=== PATIENT | male | born 1945 | race Caucasian/White ===

== ENCOUNTER 2016-12-13 23:51 | Emergency (ER) | payer MEDICARE, OTHER ==
[2016-12-14] MEDS ORDERED: Ondansetron 4 MG/2 ML SDV IVPUSH ONE (01:25)
[2016-12-14 02:13] VITALS: BP 139/68
[2016-12-14] MEDS ORDERED: Sodium Chloride 0.9% 1,000 ML IV SCH (02:15)
[2016-12-14] MEDS ORDERED: Levofloxacin/Dextrose 5%-Water 500 MG in Premix Bag 1 BAG IV ONE (02:26)
[2016-12-14] MEDS ORDERED: Acetaminophen 325 MG Tab PO ONE (02:27)
--- NOTE | 2016-12-14 02:36 | EDM.PDOC ---
ED HPI SEPSIS - General Chief Complaint: Fever Stated Complaint: WEAKNESS Time Seen by Provider: 12/14/16 00:45 Source: Reports: Patient, Family History Limitations: Reports: No limitations - History of Present Illness INITIAL COMMENTS - FREE TEXT/NARRATIVE: Pt became very very weak and spiked a temp tonight. He has a history of peritoneal dialysis. 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 This was done at [facility]. He has a history of bladder ca. He also has a history of RA. Timing/Duration: Reports: Hour(s): Severity: moderate Context: Reports: infection Associated symptoms: Reports: fever/chills, loss of appetite, nausea/vomiting - Related Data Allergies/ADRs: Allergies Allergy/AdvReac Type Severity Reaction Status Date / Time adalimumab [From Humira] Allergy Severe Anaphylactic Verified 12/14/16 00:44 Shock infliximab [From Remicade] Allergy Breast Verified 12/14/16 00:44 Tenderness Home Meds: Home Meds Aspirin [Linda Chewable Aspirin] 325 mg PO DAILY 11/05/13 [History] Cranberry Extract [Cranberry] 4,200 mg PO DAILY 11/05/13 [History] Insulin Glargine,Hum.Rec.Anlog [Lantus Solostar] 24 unit SQ BEDTIME 11/05/13 [ History] Insulin Lispro [Humalog] 0 unit SQ ASDIRECTED PRN 11/05/13 [History] Metoprolol Tartrate [Lopressor] 25 mg PO BID 09/09/14 [History] predniSONE 7 mg PO BID 01/09/15 [History] Vitamin A 8,000 units PO DAILY 05/23/15 [History] Pantoprazole [Protonix] 40 mg PO DAILY 01/06/16 [History] Sodium Bicarbonate 3 tab PO BID 01/06/16 [History] Vitamin B Complex [B Complex] 1 tab PO DAILY 01/06/16 [History] Cholecalciferol (Vitamin D3) [Vitamin D3] 2,000 unit PO DAILY 07/18/16 [History] Isosorbide Mononitrate [Imdur] 60 mg PO DAILY 07/18/16 [History] Torsemide 100 mg PO DAILY 07/18/16 [History] ALPRAZolam [Xanax] 0.25 mg PO TID PRN 12/14/16 [History] Clopidogrel Bisulfate [Plavix] 75 mg PO DAILY 12/14/16 [History] Docusate Sodium [Colace] 100 mg PO DAILY 12/14/16 [History] Epoetin Jimmy [Epogen] 20,000 unit IJ ONETIME 12/14/16 [History] Gentamicin [Gentamicin 0.1%] 15 gm TOP DAILY 12/14/16 [History] Magnesium Oxide 400 mg PO DAILY 12/14/16 [History] Mupirocin Oint [Bactroban Oint] 1 applic TOP TID 12/14/16 [History] Nitroglycerin [Nitrostat] 0.4 mg SL Q5M PRN 12/14/16 [History] Past Medical History HEENT History: Reports: Epistaxis, Impaired vision Cardiovascular History: Reports: CAD, High cholesterol, Hypertension, [place] Respiratory History: Reports: COPD, Other (see below) Other Respiratory History: spot on right lung Gastrointestinal History: Reports: Cholelithiasis, GERD Genitourinary History: Reports: Renal disease, Urinary incontinence, UTI, recurrent Other Genitourinary History: bladder cancer Musculoskeletal History: Reports: RA Other Musculoskeletal History: rheumatoid vasculitis Psychiatric History: Reports: Anxiety Endocrine/Metabolic History: Reports: Diabetes, type II Hematologic History: Reports: None, Blood transfusion(s) Immunologic History: Reports: Immunosuppression Oncologic (Cancer) History: Reports: Bladder, Lung Other Oncologic History: spot on right lung - Infectious Disease History Infectious Disease History: Reports: Chicken pox, Measles, Mumps - Past Surgical History Cardiovascular Surgical History: Reports: Coronary artery stent Respiratory Surgical History: Reports: Lung Biopsies, Lung Resection GI Surgical History: Reports: Appendectomy, Cholecystectomy, Colonoscopy Other GI Surgeries/Procedures: Peritoneal dialysis catheter Male Surgical History: Reports: Ureteral stent Musculoskeletal Surgical History: Reports: Arthroscopic knee, Other (see below) Other Musculoskeletal Surgeries/Procedures:: hand and feet surgeries Social & Family History - Family History Family Medical History: Noncontributory Cardiac: Reports: CAD, Hypertension Endocrine/Metabolic: Reports: Diabetes, type II Hematologic: Reports: None Immunologic: Reports: None Oncologic: Reports: Bladder, Esophageal Other Oncologic Family History: Gastric - Tobacco Use Smoking Status *Q: Former Smoker Years of Tobacco use: 30 Packs/Tins Daily: 1 Used Tobacco, but Quit: Yes Month Tobacco Last Used: 1984 Second Hand Smoke Exposure: No - Caffeine Use Caffeine Use: Reports: Coffee Other Caffeine Use: 2-3 cups decaf per day 1 cup tea at night 1 soda q day - Alcohol Use Days Per Week of Alcohol Use: 7 Number of Drinks Per Day: 2 Total Drinks Per Week: 14 - Recreational Drug Use Recreational Drug Use: No - Living Situation & Occupation Living situation: Reports: Occupation: retired (Lives with .) ED ROS GENERAL - Review of Systems Review Of Systems: See Below Constitutional: Reports: fever, chills, malaise, diaphoresis HEENT: Reports: No symptoms Respiratory: Reports: No Symptoms Cardiovascular: Reports: Palpitations, Other (pt feels like his heart is rapid. ) Endocrine: Reports: no symptoms GI/Abdominal: Reports: Nausea Musculoskeletal: Reports: no symptoms Skin: Reports: no symptoms Neurological: Reports: No Symptoms ED EXAM, SEPSIS - Physical Exam Exam: See Below Text/Narrative:: pt arrived with chilling nd profound weakness. He has a history of RA, renal insuff, on peritoneal dialysis , ca of the bladder and a recent resection of a malignant mass from his lung. Exam Limited By: No limitations General Appearance: alert, mild distress, other ( very weak. Pt can bearly stand. ) Ears: normal TMs Nose: normal inspection Throat/Mouth: Normal inspection Head: atraumatic Neck: normal inspection Respiratory/Chest: no respiratory distress Cardiovascular: regular rate, rhythm, tachycardia, other ( Pt has a sinus rhythm with frequent ectopics. ) GI/Abdominal: non tender, other (Pt is feeling nauseated.) (Male) Exam: Deferred Rectal (Males) Exam: Deferred Back: normal inspection Extremities: normal inspection Neurological: alert, oriented, normal cognition Psychiatric: anxious Course - Vital Signs Last Recorded V/S: Last Vital Signs Temp 37.5 C 12/14/16 02:13 Pulse 71 12/14/16 00:44 Resp 18 12/14/16 02:13 BP 139/68 12/14/16 02:13 Pulse Ox 96 12/14/16 02:13 - Orders/Labs/Meds Orders: Active Orders 24 hr Category Date Time Status EKG Documentation Completion [RC] ASDIRECTED Care 12/14/16 01:17 Active Chest 1V Frontal [CR] Stat Exams 12/14/16 00:48 Taken CULTURE BLOOD [BC] Urgent Lab 12/14/16 01:05 Received CULTURE BLOOD [BC] Urgent Lab 12/14/16 01:10 Received CULTURE URINE [RM] Stat Lab 12/14/16 02:15 Uncollected Levofloxacin/Dextrose 5%-Water [Levaquin in D5W 500 MG/ Med 12/14/16 02:26 Active 100 ML] 500 mg Premix Bag 1 bag IV ONETIME Sodium Chloride 0.9% [Normal Saline] 1,000 ml Med 12/14/16 02:15 Active IV ASDIRECTED Blood Culture x2 Reflex Set [OM.PC] Urgent Oth 12/14/16 00:48 Ordered EKG 12 Lead [EK] Routine Ther 12/14/16 01:17 Ordered Medication Orders Sodium Chloride (Normal Saline) 1,000 mls @ 150 mls/hr IV ASDIRECTED SANJIV Last Admin: 12/14/16 02:17 Dose: 150 mls/hr Levofloxacin/Dextrose 500 mg/ (Premix) 100 mls @ 100 mls/hr IV ONETIME ONE Stop: 12/14/16 03:25 Labs: Laboratory Tests 12/14/16 12/14/16 12/14/16 Range/Units 00:46 01:05 01:05 WBC 13.3 H (4.5-11.0) K/uL RBC 2.80 L (4.30-5.90) M/uL Hgb 9.3 L (12.0-15.0) g/dL Hct 28.5 L (40.0-54.0) % MCV 102 H (80-98) fL MCH 33 H (27-31) pg MCHC 33 (32-36) % Plt Count 287 (150-400) K/uL Neut % (Auto) 83 H (36-66) % Lymph % (Auto) 7 L (24-44) % [place] % (Auto) 9 H (2-6) % Eos % (Auto) 1 L (2-4) % Baso % (Auto) 0 (0-1) % Sodium 135 L (140-148) mmol/L Potassium 3.1 L (3.6-5.2) mmol/L Chloride 95 L (100-108) mmol/L Carbon Dioxide 31 (21-32) mmol/L Anion Gap 12.1 (5.0-14.0) mmol/L BUN 54 H (7-18) mg/dL Creatinine 5.0 H* (0.8-1.3) mg/dL Est Cr Clr Drug Dosing 13.30 mL/min Estimated GFR (MDRD) 12 L (>60) Glucose 243 H (74-106) mg/dL Lactic Acid 2.3 H (0.4-2.0) mmol/L Calcium 8.0 L (8.5-10.1) mg/dL Total Bilirubin 0.3 (0.2-1.0) mg/dL AST 11 L (15-37) U/L ALT 19 (12-78) U/L Alkaline Phosphatase 93 (46-116) U/L Total Protein 6.7 (6.4-8.2) g/dL Albumin 2.2 L (3.4-5.0) g/dL Globulin 4.5 H (2.3-3.5) g/dL Albumin/Globulin Ratio 0.5 L (1.2-2.2) Urine Color Urine Appearance Urine pH (4.5-8.0) Ur Specific Mar Lin (1.008-1.030) Urine Protein (NEGATIVE) mg/dL Urine Glucose (UA) (NEGATIVE) mg/dL Urine Ketones (NEGATIVE) mg/dL Urine Occult Blood (NEGATIVE) Urine Nitrite (NEGAITVE) Urine Bilirubin (NEGATIVE) Urine Urobilinogen (NORMAL) mg/dL Ur Leukocyte Esterase (NEGATIVE) Urine RBC (0-5) Urine WBC (0-5) Ur Epithelial Cells Amorphous Sediment Urine Bacteria Urine Mucus 12/14/16 Range/Units 01:51 WBC (4.5-11.0) K/uL RBC (4.30-5.90) M/uL Hgb (12.0-15.0) g/dL Hct (40.0-54.0) % MCV (80-98) fL MCH (27-31) pg MCHC (32-36) % Plt Count (150-400) K/uL Neut % (Auto) (36-66) % Lymph % (Auto) (24-44) % [place] % (Auto) (2-6) % Eos % (Auto) (2-4) % Baso % (Auto) (0-1) % Sodium (140-148) mmol/L Potassium (3.6-5.2) mmol/L Chloride (100-108) mmol/L Carbon Dioxide (21-32) mmol/L Anion Gap (5.0-14.0) mmol/L BUN (7-18) mg/dL Creatinine (0.8-1.3) mg/dL Est Cr Clr Drug Dosing mL/min Estimated GFR (MDRD) (>60) Glucose (74-106) mg/dL Lactic Acid (0.4-2.0) mmol/L Calcium (8.5-10.1) mg/dL Total Bilirubin (0.2-1.0) mg/dL AST (15-37) U/L ALT (12-78) U/L Alkaline Phosphatase (46-116) U/L Total Protein (6.4-8.2) g/dL Albumin (3.4-5.0) g/dL Globulin (2.3-3.5) g/dL Albumin/Globulin Ratio (1.2-2.2) Urine Color Yellow Urine Appearance Turbid Urine pH 6.0 (4.5-8.0) Ur Specific Mar Lin 1.010 (1.008-1.030) Urine Protein 500 H (NEGATIVE) mg/dL Urine Glucose (UA) Normal (NEGATIVE) mg/dL Urine Ketones Negative (NEGATIVE) mg/dL Urine Occult Blood Large (NEGATIVE) Urine Nitrite Negative (NEGAITVE) Urine Bilirubin Negative (NEGATIVE) Urine Urobilinogen Normal (NORMAL) mg/dL Ur Leukocyte Esterase Large (NEGATIVE) Urine RBC 5-10 H (0-5) Urine WBC >100 H (0-5) Ur Epithelial Cells Few Amorphous Sediment Not seen Urine Bacteria Many Urine Mucus Not seen Meds: Medications Generic Name Dose Route Start Last Admin Trade Name Freq PRN Reason Stop Dose Admin Sodium Chloride 1,000 mls @ 150 mls/hr 12/14/16 02:15 12/14/16 02:17 Normal Saline IV 150 mls/hr ASDIRECTED SANJIV Administration Levofloxacin/Dextrose 500 mg/ 100 mls @ 100 mls/hr 12/14/16 02:26 Premix IV 12/14/16 03:25 ONETIME ONE Discontinued Medications Generic Name Dose Route Start Last Admin Trade Name Freq PRN Reason Stop Dose Admin Acetaminophen 650 mg 12/14/16 02:27 Tylenol PO 12/14/16 02:28 NOW ONE Ondansetron HCl 4 mg 12/14/16 01:25 12/14/16 02:13 Zofran IVPUSH 12/14/16 01:26 4 mg ONETIME ONE Administration - Re-Assessments/Exams Free Text/Narrative Re-Assessment/Exam: 12/14/16 02:48 pt was cultureed blood and urine. His urine does look infected. He has a elevated wbc. he has shaking chills. Departure - Departure Time of Disposition: 02:49 Disposition: DC/Tfer to Acute Hospital 02 Condition: fair Clinical Impression: Sepsis, UTI (urinary tract infection), Renal failure, Anemia Rheumatoid arthritis Qualifiers: Rheumatoid factor presence: unspecified presence Laterality: unspecified laterality Forms: ED Department Discharge Care Plan Goals: transfer to [facility]. - My Orders Last 24 Hours: My Active Orders 12/14/16 00:48 Chest 1V Frontal [CR] Stat Blood Culture x2 Reflex Set [OM.PC] Urgent 12/14/16 01:05 CULTURE BLOOD [BC] Urgent 12/14/16 01:10 CULTURE BLOOD [BC] Urgent 12/14/16 01:17 EKG Documentation Completion [RC] ASDIRECTED EKG 12 Lead [EK] Routine 12/14/16 02:15 CULTURE URINE [RM] Stat Sodium Chloride 0.9% [Normal Saline] 1,000 ml IV ASDIRECTED 12/14/16 02:26 Levofloxacin/Dextrose 5%-Water [Levaquin in D5W 500 MG/100 ML] 500 mg Premix Bag 1 bag IV ONETIME - Assessment/Plan Last 24 Hours: My Active Orders 12/14/16 00:48 Chest 1V Frontal [CR] Stat Blood Culture x2 Reflex Set [OM.PC] Urgent 12/14/16 01:05 CULTURE BLOOD [BC] Urgent 12/14/16 01:10 CULTURE BLOOD [BC] Urgent 12/14/16 01:17 EKG Documentation Completion [RC] ASDIRECTED EKG 12 Lead [EK] Routine 12/14/16 02:15 CULTURE URINE [RM] Stat Sodium Chloride 0.9% [Normal Saline] 1,000 ml IV ASDIRECTED 12/14/16 02:26 Levofloxacin/Dextrose 5%-Water [Levaquin in D5W 500 MG/100 ML] 500 mg Premix Bag 1 bag IV ONETIME
--- NOTE | 2016-12-14 08:57 | CR ---
Portable chest Comparison: 17 September 2016. There are postsurgical changes in the peripheral right midlung where there is a suture line. The rig ht lung nodule is no longer visualized. The heart and vascular structures are within normal limits. There are no infiltrates or effusions. Impression: 1. No acute findings.
== END 2016-12-14 03:30 ==
LOC: JP.ED 23:51
DX: A41.9 Sepsis, unspecified organism (principal); N39.0 Urinary tract infection, site not specified; N19 Unspecified kidney failure; D64.9 Anemia, unspecified; M06.9 Rheumatoid arthritis, unspecified; I25.10 Atherosclerotic heart disease of native coronary artery without angina pectoris; E78.00 Pure hypercholesterolemia, unspecified; I10 Essential (primary) hypertension; I25.2 Old myocardial infarction; J44.9 Chronic obstructive pulmonary disease, unspecified; K21.9 Gastro-esophageal reflux disease without esophagitis; F41.9 Anxiety disorder, unspecified; E11.9 Type 2 diabetes mellitus without complications; Z88.8 Allergy status to other drugs, medicaments and biological substances; Z79.82 Long term (current) use of aspirin; Z79.4 Long term (current) use of insulin; Z79.899 Other long term (current) drug therapy; Z90.49 Acquired absence of other specified parts of digestive tract; Z87.891 Personal history of nicotine dependence; Z99.2 Dependence on renal dialysis
CPT/HCPCS: 36415; 71010; 80053; 81001; 83605; 85025; 87040; 87086; 87088; 87186; 93005; 96361; 96365; 96375; 99285; A9270; J1956; J2405; J7040; 93010; 99284

== ENCOUNTER 2017-01-07 13:05 | Emergency (ER) | payer MEDICARE, OTHER ==
[2017-01-07 13:33] VITALS: BP 122/69
--- NOTE | 2017-01-07 13:58 | EDM.PDOC ---
ED HPI GENERAL MEDICAL PROBLEM - General Chief Complaint: Gastrointestinal Problem Stated Complaint: BLACK STOOLS Time Seen by Provider: 01/07/17 13:53 Source of Information: Reports: Patient, Family History Limitations: Reports: No Limitations - History of Present Illness INITIAL COMMENTS - FREE TEXT/NARRATIVE: Pt arrived with a history of black tarry stols. He had 2 stools today and that i typical. He has upper abdomanal pain. He was scoped when he was in [place] and nothing definite was seen. . He started bleeding on thur and it has bee persistent. Onset: Gradual Duration: Day(s): Location: Reports: Abdomen, Other (bleeding per rectum is dark blood. ) Severity: Moderate Associated Symptoms: Reports: Loss of Appetite, Shortness of Breath, Weakness - Related Data Allergies Allergy/AdvReac Type Severity Reaction Status Date / Time adalimumab [From Humira] Allergy Severe Anaphylactic Verified 12/14/16 00:44 Shock infliximab [From Remicade] Allergy Breast Verified 12/14/16 00:44 Tenderness Home Meds: Home Meds Cranberry Extract [Cranberry] 4,200 mg PO DAILY 11/05/13 [History] Insulin Glargine,Hum.Rec.Anlog [Lantus Solostar] 24 unit SQ BEDTIME 11/05/13 [ History] Insulin Lispro [Humalog] 0 unit SQ ASDIRECTED PRN 11/05/13 [History] Metoprolol Tartrate [Lopressor] 25 mg PO BID 09/09/14 [History] predniSONE 5 mg PO DAILY 01/09/15 [History] Vitamin A 8,000 units PO DAILY 05/23/15 [History] Pantoprazole [Protonix] 40 mg PO DAILY 01/06/16 [History] Sodium Bicarbonate 3 tab PO BID 01/06/16 [History] Vitamin B Complex [B Complex] 1 tab PO DAILY 01/06/16 [History] Cholecalciferol (Vitamin D3) [Vitamin D3] 2,000 unit PO DAILY 07/18/16 [History] Isosorbide Mononitrate [Imdur] 60 mg PO DAILY 07/18/16 [History] Torsemide 100 mg PO DAILY 07/18/16 [History] ALPRAZolam [Xanax] 0.25 mg PO TID PRN 12/14/16 [History] Docusate Sodium [Colace] 100 mg PO DAILY 12/14/16 [History] Epoetin Jimmy [Epogen] 20,000 unit IJ ONETIME 12/14/16 [History] Gentamicin [Gentamicin 0.1%] 15 gm TOP DAILY 12/14/16 [History] Magnesium Oxide 400 mg PO DAILY 12/14/16 [History] Mupirocin Oint [Bactroban Oint] 1 applic TOP TID 12/14/16 [History] Nitroglycerin [Nitrostat] 0.4 mg SL Q5M PRN 12/14/16 [History] Doxycycline Hyclate 100 mg PO BID 01/07/17 [History] Fluconazole [Diflucan] 100 mg PO DAILY 01/07/17 [History] Past Medical History HEENT History: Reports: Epistaxis, Impaired Vision Cardiovascular History: Reports: CAD, High Cholesterol, Hypertension, [place] Respiratory History: Reports: COPD, Other (See Below) Other Respiratory History: spot on right lung Gastrointestinal History: Reports: Cholelithiasis, GERD Genitourinary History: Reports: Renal Disease, Urinary Incontinence, UTI, Recurrent Other Genitourinary History: bladder cancer Musculoskeletal History: Reports: RA Other Musculoskeletal History: rheumatoid vasculitis Psychiatric History: Reports: Anxiety Endocrine/Metabolic History: Reports: Diabetes, Type II Hematologic History: Reports: None, Blood Transfusion(s) Immunologic History: Reports: Immunosuppression Oncologic (Cancer) History: Reports: Bladder, Lung Other Oncologic History: spot on right lung - Infectious Disease History Infectious Disease History: Reports: Chicken Pox, Measles, Mumps - Past Surgical History Cardiovascular Surgical History: Reports: Coronary Artery Stent GI Surgical History: Reports: Appendectomy, Cholecystectomy, Colonoscopy Other GI Surgeries/Procedures: Peritoneal dialysis catheter Male Surgical History: Reports: Ureteral Stent Musculoskeletal Surgical History: Reports: Arthroscopic Knee, Other (See Below) Social & Family History - Family History Family Medical History: Noncontributory Cardiac: Reports: CAD, Hypertension Endocrine/Metabolic: Reports: Diabetes, type II Hematologic: Reports: None Immunologic: Reports: None Oncologic: Reports: Bladder, Esophageal Other Oncologic Family History: Gastric - Tobacco Use Smoking Status *Q: Never Smoker Years of Tobacco use: 30 Packs/Tins Daily: 1 Used Tobacco, but Quit: Yes Month Tobacco Last Used: 1984 Second Hand Smoke Exposure: No - Caffeine Use Caffeine Use: Reports: None Other Caffeine Use: 2-3 cups decaf per day 1 cup tea at night 1 soda q day - Alcohol Use Days Per Week of Alcohol Use: 7 Number of Drinks Per Day: 2 Total Drinks Per Week: 14 - Recreational Drug Use Recreational Drug Use: No - Living Situation & Occupation Living situation: Reports: Occupation: Retired ED ROS GENERAL - Review of Systems Review Of Systems: See Below Constitutional: Reports: No Symptoms HEENT: Reports: No Symptoms Respiratory: Reports: No Symptoms Cardiovascular: Reports: No Symptoms Endocrine: Reports: No Symptoms GI/Abdominal: Reports: Abdominal Pain, Black Stool : Reports: No Symptoms Musculoskeletal: Reports: No Symptoms Skin: Reports: No Symptoms ED EXAM, GI/ABD - Physical Exam Exam: See Below Text/Narrative:: Pt arrived having 2 smaller Dark tarry stols daily. He states these startd thur nite. It has not gotten alot worse, Pt is on pertineal dialysis Exam Limited By: No Limitations General Appearance: Alert, Mild Distress Ears: Normal TMs Nose: Normal Inspection Throat/Mouth: Normal Inspection Head: Atraumatic Neck: Normal Inspection Respiratory/Chest: No Respiratory Distress Cardiovascular: Regular Rate, Rhythm GI/Abdominal: Other (Pt has mild epigastric distress. He was scoped 1 weekago in [place]. ) (Male) Exam: Deferred Rectal (Males) Exam: Other ( Dark stool present. ) Back Exam: Normal Inspection Extremities: Pedal Edema Neurological: Alert, Oriented Psychiatric: Normal Affect Course - Vital Signs Last Recorded V/S: Last Vital Signs Temp 35.6 C 01/07/17 13:33 Pulse 73 01/07/17 13:33 Resp 16 01/07/17 13:33 BP 122/69 01/07/17 13:33 Pulse Ox 99 01/07/17 13:33 - Orders/Labs/Meds Orders: Active Orders 24 hr Category Date Time Status UA W/MICROSCOPIC [URIN] Urgent Lab 01/07/17 13:40 Uncollected Labs: Laboratory Tests 01/07/17 01/07/17 Range/Units 13:49 13:49 WBC 13.1 H (4.5-11.0) K/uL RBC 3.28 L (4.30-5.90) M/uL Hgb 9.9 L (12.0-15.0) g/dL Hct 31.6 L (40.0-54.0) % MCV 96 (80-98) fL MCH 30 (27-31) pg MCHC 31 L (32-36) % Plt Count 318 (150-400) K/uL Add Manual Diff Yes Neutrophils % (Manual) 72 H (36-66) % Band Neutrophils % 1 L (5-11) % Lymphocytes % (Manual) 15 L (24-44) % Monocytes % (Manual) 10 H (2-6) % Eosinophils % (Manual) 2 (2-4) % Sodium 138 L (140-148) mmol/L Potassium 4.1 (3.6-5.2) mmol/L Chloride 98 L (100-108) mmol/L Carbon Dioxide 27 (21-32) mmol/L Anion Gap 17.1 H (5.0-14.0) mmol/L BUN 61 H (7-18) mg/dL Creatinine 6.8 H* (0.8-1.3) mg/dL Est Cr Clr Drug Dosing 9.64 mL/min Estimated GFR (MDRD) 8 L (>60) Glucose 263 H (74-106) mg/dL Calcium 8.5 (8.5-10.1) mg/dL Total Bilirubin 0.2 (0.2-1.0) mg/dL AST 13 L (15-37) U/L ALT 18 (12-78) U/L Alkaline Phosphatase 85 (46-116) U/L Total Protein 7.1 (6.4-8.2) g/dL Albumin 2.4 L (3.4-5.0) g/dL Globulin 4.7 H (2.3-3.5) g/dL Albumin/Globulin Ratio 0.5 L (1.2-2.2) - Re-Assessments/Exams Free Text/Narrative Re-Assessment/Exam: 01/07/17 14:39 When pt was scoped in [place] no definite answer as to the source of his bleeding was found. He did well after being in [place] until Thur and then he started bleeding again. His hg has remained about the same. He is having about 2 bloody stools per day. 01/07/17 14:41 Departure - Departure Time of Disposition: 14:42 Disposition: Home, Self-Care 01 Condition: fair Clinical Impression: GI bleeding, Anemia, Renal insufficiency, Peritoneal dialysis catheter in place - Discharge Information Referrals: Moses Kern MD [Primary Care Provider] - Forms: ED Department Discharge Care Plan Goals: rtc immediately if bleeding is heavy , keep appt at [facility]. The dept has been contacted regarding the GI bleeding. The records have been sent to [facility]. cont same meds, keep appt at [facility] this and Saturday. - My Orders Last 24 Hours: My Active Orders 01/07/17 13:40 UA W/MICROSCOPIC [URIN] Urgent - Assessment/Plan Last 24 Hours: My Active Orders 01/07/17 13:40 UA W/MICROSCOPIC [URIN] Urgent
== END 2017-01-07 15:00 | disposition home or self-care (01) ==
LOC: JP.ED 13:05
DX: K92.2 Gastrointestinal hemorrhage, unspecified (principal); N28.9 Disorder of kidney and ureter, unspecified; I25.10 Atherosclerotic heart disease of native coronary artery without angina pectoris; I10 Essential (primary) hypertension; I25.2 Old myocardial infarction; E78.00 Pure hypercholesterolemia, unspecified; J44.9 Chronic obstructive pulmonary disease, unspecified; K21.9 Gastro-esophageal reflux disease without esophagitis; E11.9 Type 2 diabetes mellitus without complications; M06.9 Rheumatoid arthritis, unspecified; F41.9 Anxiety disorder, unspecified; Z85.51 Personal history of malignant neoplasm of bladder; Z85.118 Personal history of other malignant neoplasm of bronchus and lung; Z95.5 Presence of coronary angioplasty implant and graft; Z90.49 Acquired absence of other specified parts of digestive tract; Z98.890 Other specified postprocedural states; Z79.4 Long term (current) use of insulin; Z79.899 Other long term (current) drug therapy; Z88.8 Allergy status to other drugs, medicaments and biological substances
CPT/HCPCS: 36415; 80053; 85025; 99284

== ENCOUNTER 2017-04-19 21:50 | Emergency (ER) | payer MEDICARE, OTHER ==
[2017-04-19 22:09] VITALS: BP 143/70
--- NOTE | 2017-04-19 22:33 | EDM.PDOC ---
ED HPI GENERAL MEDICAL PROBLEM - General Chief Complaint: Genitourinary Problem Stated Complaint: CATHETER IS COMING OUT Time Seen by Provider: 04/19/17 22:25 Source of Information: Reports: Patient, RN Notes Reviewed History Limitations: Reports: No Limitations - History of Present Illness INITIAL COMMENTS - FREE TEXT/NARRATIVE: 72-year-old gentleman presents emergency department a complaint of difficulty with urinary catheter, chronic indwelling catheter leg bag type I he states the catheter has migrated out now he has pain in his penis - Related Data Allergies Allergy/AdvReac Type Severity Reaction Status Date / Time adalimumab [From Humira] Allergy Severe Anaphylactic Verified 12/14/16 00:44 Shock infliximab [From Remicade] Allergy Breast Verified 12/14/16 00:44 Tenderness Home Meds: Home Meds Cranberry Extract [Cranberry] 4,200 mg PO DAILY 11/05/13 [History] Insulin Glargine,Hum.Rec.Anlog [Lantus Solostar] 24 unit SQ BEDTIME 11/05/13 [ History] Insulin Lispro [Humalog] 0 unit SQ ASDIRECTED PRN 11/05/13 [History] Metoprolol Tartrate [Lopressor] 25 mg PO BID 09/09/14 [History] predniSONE 5 mg PO DAILY 01/09/15 [History] Vitamin A 8,000 units PO DAILY 05/23/15 [History] Pantoprazole [Protonix] 40 mg PO DAILY 01/06/16 [History] Sodium Bicarbonate 3 tab PO BID 01/06/16 [History] Vitamin B Complex [B Complex] 1 tab PO DAILY 01/06/16 [History] Cholecalciferol (Vitamin D3) [Vitamin D3] 2,000 unit PO DAILY 07/18/16 [History] Isosorbide Mononitrate [Imdur] 60 mg PO DAILY 07/18/16 [History] Torsemide 100 mg PO DAILY 07/18/16 [History] ALPRAZolam [Xanax] 0.25 mg PO TID PRN 12/14/16 [History] Docusate Sodium [Colace] 100 mg PO DAILY 12/14/16 [History] Epoetin Jimmy [Epogen] 20,000 unit IJ ONETIME 12/14/16 [History] Gentamicin [Gentamicin 0.1%] 15 gm TOP DAILY 12/14/16 [History] Magnesium Oxide 400 mg PO DAILY 12/14/16 [History] Mupirocin Oint [Bactroban Oint] 1 applic TOP TID 12/14/16 [History] Nitroglycerin [Nitrostat] 0.4 mg SL Q5M PRN 12/14/16 [History] Doxycycline Hyclate 100 mg PO BID 01/07/17 [History] Fluconazole [Diflucan] 100 mg PO DAILY 01/07/17 [History] Past Medical History HEENT History: Reports: Epistaxis, Impaired Vision Cardiovascular History: Reports: CAD, High Cholesterol, Hypertension, [place] Respiratory History: Reports: COPD, Other (See Below) Other Respiratory History: spot on right lung Gastrointestinal History: Reports: Cholelithiasis, GERD Genitourinary History: Reports: Renal Disease, Urinary Incontinence, UTI, Recurrent Other Genitourinary History: bladder cancer Musculoskeletal History: Reports: RA Other Musculoskeletal History: rheumatoid vasculitis Psychiatric History: Reports: Anxiety Endocrine/Metabolic History: Reports: Diabetes, Type II Hematologic History: Reports: None, Blood Transfusion(s) Immunologic History: Reports: Immunosuppression Oncologic (Cancer) History: Reports: Bladder, Lung Other Oncologic History: spot on right lung - Infectious Disease History Infectious Disease History: Reports: Chicken Pox, Measles, Mumps - Past Surgical History Cardiovascular Surgical History: Reports: Coronary Artery Stent GI Surgical History: Reports: Appendectomy, Cholecystectomy, Colonoscopy Other GI Surgeries/Procedures: Peritoneal dialysis catheter Male Surgical History: Reports: Ureteral Stent Musculoskeletal Surgical History: Reports: Arthroscopic Knee, Other (See Below) Social & Family History - Family History Family Medical History: Noncontributory Cardiac: Reports: CAD, Hypertension Endocrine/Metabolic: Reports: Diabetes, type II Hematologic: Reports: None Immunologic: Reports: None Oncologic: Reports: Bladder, Esophageal Other Oncologic Family History: Gastric - Tobacco Use Smoking Status *Q: Never Smoker Years of Tobacco use: 30 Packs/Tins Daily: 1 Used Tobacco, but Quit: Yes Month Tobacco Last Used: 1984 Second Hand Smoke Exposure: No - Caffeine Use Caffeine Use: Reports: None Other Caffeine Use: 2-3 cups decaf per day 1 cup tea at night 1 soda q day - Alcohol Use Days Per Week of Alcohol Use: 7 Number of Drinks Per Day: 2 Total Drinks Per Week: 14 - Recreational Drug Use Recreational Drug Use: No - Living Situation & Occupation Living situation: Reports: Occupation: Retired ED ROS GENERAL - Review of Systems Review Of Systems: See Below Constitutional: Reports: No Symptoms Respiratory: Reports: No Symptoms Cardiovascular: Reports: No Symptoms : Reports: Other (Pain in the penis). Denies: Discharge, Flank Pain, Frequency, Hematuria, Urinary Retention ED EXAM, RENAL/ - Physical Exam Exam: See Below Text/Narrative:: Examination genitourinary uncircumcised male appreciate lesions the catheter has extended out consistent with migration Exam Limited By: No Limitations General Appearance: Alert, WD/WN, No Apparent Distress Course - Vital Signs Last Recorded V/S: Last Vital Signs Temp 97.0 F 04/19/17 23:27 Pulse 99 04/19/17 23:27 Resp 18 04/19/17 23:27 BP 143/70 H 04/19/17 23:27 Pulse Ox 94 L 04/19/17 23:27 - Orders/Labs/Meds Orders: Active Orders 24 hr Category Date Time Status Bladder Scan [RC] ONETIME Care 04/19/17 22:30 Active Insert Crum Catheter [Insert Urinary Catheter] [OM.PC] Care 04/19/17 22:30 Ordered Q24H Urinary Catheter Assessment [RC] ASDIRECTED Care 04/19/17 22:31 Active CULTURE URINE [RM] Urgent Lab 04/19/17 23:36 Ordered Labs: Laboratory Tests 04/19/17 Range/Units 23:21 Urine Color Yellow Urine Appearance Cloudy Urine pH 8.0 (4.5-8.0) Ur Specific [place] 1.010 (1.008-1.030) Urine Protein 100 H (NEGATIVE) mg/dL Urine Glucose (UA) 100 H (NEGATIVE) mg/dL Urine Ketones Negative (NEGATIVE) mg/dL Urine Occult Blood Large (NEGATIVE) Urine Nitrite Negative (NEGAITVE) Urine Bilirubin Negative (NEGATIVE) Urine Urobilinogen Normal (NORMAL) mg/dL Ur Leukocyte Esterase Large (NEGATIVE) Urine RBC 20-30 H (0-5) Urine WBC Packed H (0-5) Ur Epithelial Cells Not seen Amorphous Sediment Not seen Urine Bacteria Few Urine Mucus Not seen Departure - Departure Time of Disposition: 23:40 Disposition: Home, Self-Care 01 Condition: Fair Clinical Impression: UTI, Urinary tract infectious disease - Discharge Information Referrals: Moses Kern MD [Primary Care Provider] - Forms: ED Department Discharge Additional Instructions: Take full course of antibiotics, Please followup with your primary care provider in 5-7 days if not better, please call return to the emergency department with worsening of symptoms. - My Orders Last 24 Hours: My Active Orders 04/19/17 22:30 Bladder Scan [RC] ONETIME Insert Crum Catheter [Insert Urinary Catheter] [OM.PC] Q24H 04/19/17 22:31 Urinary Catheter Assessment [RC] ASDIRECTED 04/19/17 23:36 CULTURE URINE [RM] Urgent - Assessment/Plan Last 24 Hours: My Active Orders 04/19/17 22:30 Bladder Scan [RC] ONETIME Insert Crum Catheter [Insert Urinary Catheter] [OM.PC] Q24H 04/19/17 22:31 Urinary Catheter Assessment [RC] ASDIRECTED 04/19/17 23:36 CULTURE URINE [RM] Urgent Plan: Assessment Acuity = acute Site and laterality = urinary tract infection with catheter malfunction Etiology = probable bacterial cause Manifestations = penis discomfort now resolved Location of injury = Home Lab values = 100 of protein consistent proteinuria 100 glucose consistent with glucoseurea 20-30 rbc's consistent with hematuria and packed WBCs consistent with pyuria cultures pending Plan I did review urinalysis with him he received significant relief with the catheter change, plan is to use Bactrim DS 1 tab by mouth twice a day 10 days follow-up primary care in 5-7 days if no improvement Patient was in agreement with the plan all questions were answered, they were instructed to return to the emergency department or call for worsening symptoms. This note was dictated using [employer] voice recognition software please call with any questions.
== END 2017-04-20 00:01 | disposition home or self-care (01) ==
LOC: JP.ED 21:50
DX: N39.0 Urinary tract infection, site not specified (principal); I25.10 Atherosclerotic heart disease of native coronary artery without angina pectoris; E78.00 Pure hypercholesterolemia, unspecified; I10 Essential (primary) hypertension; I25.2 Old myocardial infarction; J44.9 Chronic obstructive pulmonary disease, unspecified; K21.9 Gastro-esophageal reflux disease without esophagitis; E11.9 Type 2 diabetes mellitus without complications; Z87.440 Personal history of urinary (tract) infections; Z85.51 Personal history of malignant neoplasm of bladder; Z85.118 Personal history of other malignant neoplasm of bronchus and lung; Z95.5 Presence of coronary angioplasty implant and graft; Z90.49 Acquired absence of other specified parts of digestive tract; Z79.4 Long term (current) use of insulin; Z79.899 Other long term (current) drug therapy; Z88.8 Allergy status to other drugs, medicaments and biological substances
CPT/HCPCS: 51702; 51798; 81001; 87086; 87088; 87186; 99284; 99284-25

== ENCOUNTER 2017-06-23 19:54 | Emergency (ER) | payer MEDICARE, OTHER ==
--- NOTE | 2017-06-23 20:31 | EDM.PDOC ---
ED HPI GENERAL MEDICAL PROBLEM - General Chief Complaint: Chest Pain Stated Complaint: WEAKNESS,SHORTNESS OF BREATH Time Seen by Provider: 06/23/17 20:31 Source of Information: Reports: Patient, Family History Limitations: Reports: No Limitations - History of Present Illness INITIAL COMMENTS - FREE TEXT/NARRATIVE: pt arrived with a history of having some episodes of chest pain. He had chest pain which was brief about noon. Onset: Gradual, Other (pt has been quite ill for about 2-4 days. he is not eating well and he is having difficulty getting in and out of bed. ) Duration: Day(s): Location: Reports: Chest, Other ( sob) Quality: Reports: Other (pt has no chest pain at this time. ) Associated Symptoms: Reports: Chest Pain, Loss of Appetite, Shortness of Breath , Weakness chest pain Pain Score (Numeric/FACES): 6 - Related Data Allergies Allergy/AdvReac Type Severity Reaction Status Date / Time adalimumab [From Humira] Allergy Severe Anaphylactic Verified 06/23/17 20:12 Shock infliximab [From Remicade] Allergy Breast Verified 06/23/17 20:12 Tenderness Home Meds: Home Meds Cranberry Extract [Cranberry] 4,200 mg PO DAILY 11/05/13 [History] Insulin Glargine,Hum.Rec.Anlog [Lantus Solostar] 24 unit SQ BEDTIME 11/05/13 [ History] Insulin Lispro [Humalog] 4 unit SQ ASDIRECTED PRN 11/05/13 [History] Metoprolol Tartrate [Lopressor] 25 mg PO BID 09/09/14 [History] Vitamin A 8,000 units PO DAILY 05/23/15 [History] Pantoprazole [Protonix] 40 mg PO DAILY 01/06/16 [History] Sodium Bicarbonate 650 mg PO DAILY 01/06/16 [History] Cholecalciferol (Vitamin D3) [Vitamin D3] 2,000 unit PO DAILY 07/18/16 [History] Torsemide 100 mg PO DAILY 07/18/16 [History] ALPRAZolam [Xanax] 0.25 mg PO TID PRN 12/14/16 [History] Docusate Sodium [Colace] 100 mg PO DAILY 12/14/16 [History] Epoetin Jimmy [Epogen] 30,000 unit IJ ONETIME 12/14/16 [History] Gentamicin [Gentamicin 0.1%] 15 gm TOP DAILY 12/14/16 [History] Magnesium Oxide 400 mg PO DAILY 12/14/16 [History] Nitroglycerin [Nitrostat] 0.4 mg SL Q5M PRN 12/14/16 [History] Aspirin [Linda Chewable] 81 mg PO DAILY 06/23/17 [History] Calcitriol [Rocaltrol] 0.25 mcg PO ASDIRECTED 06/23/17 [History] Folic Acid/Vitamin B Comp W-C [Dialyvite] 1 tab PO DAILY 06/23/17 [History] Hydrocort/Neomycin/Polymyxin B [Cortisporin Otic Susp] 1 drop TOP DAILY [History] Sulfamethoxazole/Trimethoprim [Bactrim Ds Tablet] 1 each PO DAILY 06/23/17 [ History] Turmeric Root Extract [Turmeric] 1,000 mg PO BEDTIME 06/23/17 [History] Turmeric Root Extract [Turmeric] 500 mg PO ACBREAKFAST 06/23/17 [History] tiZANidine [Zanaflex] 4 mg PO BID 06/23/17 [History] Past Medical History HEENT History: Reports: Epistaxis, Impaired Vision Cardiovascular History: Reports: CAD, High Cholesterol, Hypertension, [place] Respiratory History: Reports: COPD, Other (See Below) Other Respiratory History: spot on right lung Gastrointestinal History: Reports: Cholelithiasis, GERD Genitourinary History: Reports: Renal Disease, Urinary Incontinence, UTI, Recurrent Other Genitourinary History: bladder cancer Musculoskeletal History: Reports: RA Other Musculoskeletal History: rheumatoid vasculitis Psychiatric History: Reports: Anxiety Endocrine/Metabolic History: Reports: Diabetes, Type II Hematologic History: Reports: None, Blood Transfusion(s) Immunologic History: Reports: Immunosuppression Oncologic (Cancer) History: Reports: Bladder, Lung Other Oncologic History: spot on right lung - Infectious Disease History Infectious Disease History: Reports: Chicken Pox, Measles, MRSA, Mumps - Past Surgical History Cardiovascular Surgical History: Reports: Coronary Artery Stent GI Surgical History: Reports: Appendectomy, Cholecystectomy, Colonoscopy Other GI Surgeries/Procedures: Peritoneal dialysis catheter Male Surgical History: Reports: Ureteral Stent Musculoskeletal Surgical History: Reports: Arthroscopic Knee, Other (See Below) Social & Family History - Family History Family Medical History: Noncontributory Cardiac: Reports: CAD, Hypertension Endocrine/Metabolic: Reports: Diabetes, type II Hematologic: Reports: None Immunologic: Reports: None Oncologic: Reports: Bladder, Esophageal Other Oncologic Family History: Gastric - Tobacco Use Smoking Status *Q: Never Smoker Years of Tobacco use: 30 Packs/Tins Daily: 1 Used Tobacco, but Quit: Yes Month Tobacco Last Used: 1984 Second Hand Smoke Exposure: No - Caffeine Use Caffeine Use: Reports: None Other Caffeine Use: 2-3 cups decaf per day 1 cup tea at night 1 soda q day - Alcohol Use Days Per Week of Alcohol Use: 7 Number of Drinks Per Day: 2 Total Drinks Per Week: 14 - Recreational Drug Use Recreational Drug Use: No - Living Situation & Occupation Living situation: Reports: Occupation: Retired ED ROS GENERAL - Review of Systems Review Of Systems: See Below Constitutional: Reports: No Symptoms, Weakness, Fatigue, Decreased Appetite. Denies: Other (pt has been vomiting some. ) HEENT: Reports: No Symptoms Respiratory: Reports: No Symptoms Cardiovascular: Reports: No Symptoms GI/Abdominal: Reports: Other (pt has peritnel dialysis and he has diffuse abdomanal pin) : Reports: No Symptoms, Other (pt has a suprapupic cath. ) Musculoskeletal: Reports: No Symptoms Neurological: Reports: No Symptoms ED EXAM, GENERAL - Physical Exam Exam: See Below Free Text/Narrative:: pt has been very weak and is having difficulty getting in and out of a chair. He is vomiting alot of his meals and his fluids. He does periteal dialysis at home. Exam Limited By: No Limitations General Appearance: Alert, Mild Distress Ears: Normal TMs Nose: Normal Inspection Throat/Mouth: Normal Inspection Head: Atraumatic Neck: Normal Inspection Respiratory/Chest: No Respiratory Distress Cardiovascular: Irregularly Irregular, Other ( atrial fib) GI/Abdominal: Soft, Non-Tender (Male) Exam: Deferred Rectal (Males) Exam: Deferred Back Exam: Normal Inspection Extremities: Normal Inspection Neurological: Alert, Oriented, Normal Cognition Psychiatric: Normal Affect Course - Vital Signs Last Recorded V/S: Last Vital Signs Temp 37.1 C 06/23/17 20:13 Pulse 100 06/23/17 21:56 Resp 15 06/23/17 20:13 BP 139/70 06/23/17 21:56 Pulse Ox 100 06/23/17 21:56 - Orders/Labs/Meds Orders: Active Orders 24 hr Category Date Time Status EKG Documentation Completion [RC] ASDIRECTED Care 06/23/17 20:30 Active Chest 1V Frontal [CR] Stat Exams 06/23/17 20:30 Taken CULTURE BLOOD [BC] Urgent Lab 06/23/17 22:10 Received CULTURE BLOOD [BC] Urgent Lab 06/23/17 22:20 Received CULTURE URINE [RM] Stat Lab 06/23/17 22:04 Uncollected Levofloxacin/Dextrose 5%-Water [Levaquin in D5W 500 MG/ Med 06/23/17 22:06 Active 100 ML] 500 mg Premix Bag 1 bag IV ONETIME Sodium Chloride 0.9% [Normal Saline] 1,000 ml Med 06/23/17 21:00 Active IV ASDIRECTED Blood Culture x2 Reflex Set [OM.PC] Urgent Oth 06/23/17 22:05 Ordered EKG 12 Lead [EK] Routine Ther 06/23/17 20:30 Ordered Medication Orders Sodium Chloride (Normal Saline) 1,000 mls @ 250 mls/hr IV ASDIRECTED [facility] Last Admin: 06/23/17 21:00 Dose: 250 mls/hr Levofloxacin/Dextrose 500 mg/ (Premix) 100 mls @ 100 mls/hr IV ONETIME ONE Stop: 06/23/17 23:05 Last Admin: 06/23/17 22:17 Dose: 100 mls/hr Labs: Laboratory Tests 06/23/17 06/23/17 06/23/17 Range/Units 20:35 20:35 20:35 WBC 9.6 (4.5-11.0) K/uL RBC 3.41 L (4.30-5.90) M/uL Hgb 10.2 L (12.0-15.0) g/dL Hct 32.4 L (40.0-54.0) % MCV 95 (80-98) fL MCH 30 (27-31) pg MCHC 32 (32-36) % Plt Count 312 (150-400) K/uL Neut % (Auto) 67 H (36-66) % Lymph % (Auto) 15 L (24-44) % [place] % (Auto) 12 H (2-6) % Eos % (Auto) 6 H (2-4) % Baso % (Auto) 1 (0-1) % PT (9.5-12.0) sec INR (0.80-1.20) Sodium 136 L (140-148) mmol/L Potassium 3.6 (3.6-5.2) mmol/L Chloride 99 L (100-108) mmol/L Carbon Dioxide 24 (21-32) mmol/L Anion Gap 16.6 H (5.0-14.0) mmol/L BUN 67 H (7-18) mg/dL Creatinine 10.3 H* D (0.8-1.3) mg/dL Est Cr Clr Drug Dosing 6.79 mL/min Estimated GFR (MDRD) 5 L (>60) Glucose 135 H (74-106) mg/dL Lactic Acid (0.4-2.0) mmol/L Calcium 9.5 (8.5-10.1) mg/dL Total Bilirubin 0.3 (0.2-1.0) mg/dL AST 14 L (15-37) U/L ALT 12 (12-78) U/L Alkaline Phosphatase 101 (46-116) U/L Creatine Kinase 16 L (39-308) U/L Troponin I < 0.017 (0.000-0.056) ng/mL Total Protein 7.0 (6.4-8.2) g/dL Albumin 2.3 L (3.4-5.0) g/dL Globulin 4.7 H (2.3-3.5) g/dL Albumin/Globulin Ratio 0.5 L (1.2-2.2) Urine Color Urine Appearance Urine pH (4.5-8.0) Ur Specific [place] (1.008-1.030) Urine Protein (NEGATIVE) mg/dL Urine Glucose (UA) (NEGATIVE) mg/dL Urine Ketones (NEGATIVE) mg/dL Urine Occult Blood (NEGATIVE) Urine Nitrite (NEGAITVE) Urine Bilirubin (NEGATIVE) Urine Urobilinogen (NORMAL) mg/dL Ur Leukocyte Esterase (NEGATIVE) Urine RBC (0-5) Urine WBC (0-5) Ur Epithelial Cells Amorphous Sediment Urine Bacteria Urine Mucus 06/23/17 06/23/17 06/23/17 Range/Units 20:55 21:46 22:04 WBC (4.5-11.0) K/uL RBC (4.30-5.90) M/uL Hgb (12.0-15.0) g/dL Hct (40.0-54.0) % MCV (80-98) fL MCH (27-31) pg MCHC (32-36) % Plt Count (150-400) K/uL Neut % (Auto) (36-66) % Lymph % (Auto) (24-44) % [place] % (Auto) (2-6) % Eos % (Auto) (2-4) % Baso % (Auto) (0-1) % PT 10.3 (9.5-12.0) sec INR 0.96 (0.80-1.20) Sodium (140-148) mmol/L Potassium (3.6-5.2) mmol/L Chloride (100-108) mmol/L Carbon Dioxide (21-32) mmol/L Anion Gap (5.0-14.0) mmol/L BUN (7-18) mg/dL Creatinine (0.8-1.3) mg/dL Est Cr Clr Drug Dosing mL/min Estimated GFR (MDRD) (>60) Glucose (74-106) mg/dL Lactic Acid 1.5 (0.4-2.0) mmol/L Calcium (8.5-10.1) mg/dL Total Bilirubin (0.2-1.0) mg/dL AST (15-37) U/L ALT (12-78) U/L Alkaline Phosphatase (46-116) U/L Creatine Kinase (39-308) U/L Troponin I (0.000-0.056) ng/mL Total Protein (6.4-8.2) g/dL Albumin (3.4-5.0) g/dL Globulin (2.3-3.5) g/dL Albumin/Globulin Ratio (1.2-2.2) Urine Color Yellow Urine Appearance Turbid Urine pH 6.5 (4.5-8.0) Ur Specific [place] 1.010 (1.008-1.030) Urine Protein 500 H (NEGATIVE) mg/dL Urine Glucose (UA) Normal (NEGATIVE) mg/dL Urine Ketones Negative (NEGATIVE) mg/dL Urine Occult Blood Large (NEGATIVE) Urine Nitrite Negative (NEGAITVE) Urine Bilirubin Negative (NEGATIVE) Urine Urobilinogen Normal (NORMAL) mg/dL Ur Leukocyte Esterase Large (NEGATIVE) Urine RBC 20-30 H (0-5) Urine WBC Packed H (0-5) Ur Epithelial Cells Few Amorphous Sediment Few Urine Bacteria Moderate Urine Mucus Few Meds: Medications Generic Name Dose Route Start Last Admin Trade Name Justine PRN Reason Stop Dose Admin Sodium Chloride 1,000 mls @ 250 mls/hr 06/23/17 21:00 06/23/17 21:00 Normal Saline IV 250 mls/hr ASDIRECTED SANJIV Administration Levofloxacin/Dextrose 500 mg/ 100 mls @ 100 mls/hr 06/23/17 22:06 06/23/17 22 :17 Premix IV 06/23/17 23:05 100 mls/hr ONETIME ONE Administration - Re-Assessments/Exams Free Text/Narrative Re-Assessment/Exam: 06/23/17 22:56 pt arrived with a history of being weak and havig several episodes of chest pain. His cardiac enzymes are normal He has a very infected urine. He does not have a fever. His lactic acid is normal. Blood cultures were drawn and his urine was cultured. 06/23/17 22:58 pt was given levoquin 500mg iv. He had fluid running at 250. His creatnine is 10. Departure - Departure Time of Disposition: 22:58 Disposition: DC/Tfer to Acute Hospital 02 Reason for Transfer *Q: Primary PCI Indicated Condition: Fair Clinical Impression: Atrial fibrillation, chronic, Dehydration, UTI (urinary tract infection), Atypical chest pain Rheumatoid arthritis Qualifiers: Rheumatoid factor presence: unspecified presence Laterality: unspecified laterality Referrals: Moses Kern MD [Primary Care Provider] - Forms: ED Department Discharge Care Plan Goals: transfer to [facility]. - My Orders Last 24 Hours: My Active Orders 06/23/17 20:30 EKG Documentation Completion [RC] ASDIRECTED Chest 1V Frontal [CR] Stat EKG 12 Lead [EK] Routine 06/23/17 21:00 Sodium Chloride 0.9% [Normal Saline] 1,000 ml IV ASDIRECTED 06/23/17 22:04 CULTURE URINE [RM] Stat 06/23/17 22:05 Blood Culture x2 Reflex Set [OM.PC] Urgent 06/23/17 22:06 Levofloxacin/Dextrose 5%-Water [Levaquin in D5W 500 MG/100 ML] 500 mg Premix Bag 1 bag IV ONETIME 06/23/17 22:10 CULTURE BLOOD [BC] Urgent 06/23/17 22:20 CULTURE BLOOD [BC] Urgent - Assessment/Plan Last 24 Hours: My Active Orders 06/23/17 20:30 EKG Documentation Completion [RC] ASDIRECTED Chest 1V Frontal [CR] Stat EKG 12 Lead [EK] Routine 06/23/17 21:00 Sodium Chloride 0.9% [Normal Saline] 1,000 ml IV ASDIRECTED 06/23/17 22:04 CULTURE URINE [RM] Stat 06/23/17 22:05 Blood Culture x2 Reflex Set [OM.PC] Urgent 06/23/17 22:06 Levofloxacin/Dextrose 5%-Water [Levaquin in D5W 500 MG/100 ML] 500 mg Premix Bag 1 bag IV ONETIME 06/23/17 22:10 CULTURE BLOOD [BC] Urgent 06/23/17 22:20 CULTURE BLOOD [BC] Urgent
[2017-06-23] MEDS ORDERED: Sodium Chloride 0.9% 1,000 ML IV SCH (21:00)
[2017-06-23] MEDS ORDERED: Levofloxacin/Dextrose 5%-Water 500 MG in Premix Bag 1 BAG IV ONE (22:06)
[2017-06-24] MEDS ORDERED: Acetaminophen/oxyCODONE 325-5 MG Tab PO ONE (00:30)
[2017-06-24 00:38] VITALS: BP 136/74
--- NOTE | 2017-06-24 08:22 | CR ---
Chest 1V Frontal INDICATION: sob FINDINGS: Comparison 12/14/2016. Postoperative changes right thoracotomy. No focal infiltrate. Osteope cally. Chest otherwise unremarkable.
== END 2017-06-24 00:45 ==
LOC: JP.ED 19:54
DX: I48.2 Chronic atrial fibrillation (principal); E86.0 Dehydration; N39.0 Urinary tract infection, site not specified; M06.9 Rheumatoid arthritis, unspecified; I10 Essential (primary) hypertension; I25.10 Atherosclerotic heart disease of native coronary artery without angina pectoris; E78.00 Pure hypercholesterolemia, unspecified; E11.9 Type 2 diabetes mellitus without complications; K21.9 Gastro-esophageal reflux disease without esophagitis; Z87.891 Personal history of nicotine dependence; Z79.4 Long term (current) use of insulin; Z79.82 Long term (current) use of aspirin; Z79.899 Other long term (current) drug therapy; Z88.8 Allergy status to other drugs, medicaments and biological substances
CPT/HCPCS: 36415; 71010; 80053; 81001; 82550; 83605; 84484; 85025; 85610; 87040; 87086; 93005; 96361; 96365; 99285; A9270; J1956; J7040; 87088; 87186; 93010

== ENCOUNTER 2017-11-05 07:30 | Day surgery (SDC) | payer MEDICARE, OTHER ==
[2017-11-05] MEDS ORDERED: Midazolam 1 MG/ML 2 ML SDV ONE (08:04)
[2017-11-05] MEDS ORDERED: Propofol 200 MG/20 ML SDV ONE (08:04)
[2017-11-05] MEDS ORDERED: fentaNYL 100 MCG/2 ML SDV ONE (08:04)
[2017-11-05] MEDS ORDERED: Dextrose 5%-Lactated Ringers 1,000 ML IV SCH (08:15)
[2017-11-05] MEDS ORDERED: Glycopyrrolate 0.2 MG/ML 2 ML SDV IVPUSH ONE (08:45)
[2017-11-05 11:49] VITALS: BP 133/74
--- NOTE | 2017-11-07 10:25 | OR ---
DATE OF PROCEDURE: 11/05/2017 PREOPERATIVE DIAGNOSIS: Abdominal pain and episodes of nausea and hiccups. POSTOPERATIVE DIAGNOSES: 1. Abdominal pain and episodes of nausea and hiccups. 2. Large gastric bezoar. 3. Small hiatal hernia with mild inflammation of esophagogastric junction. OPERATIVE PROCEDURE: Esophagogastroduodenoscopy with gastric biopsies for CLOtest. ANESTHESIA: IV sedation. INDICATION FOR PROCEDURE: This is a 72-year-old presenting with some abdominal pain, along with episodes of nausea and hiccups. The patient presently has not been on any antisecretory medications. The plan is to proceed with upper GI endoscopy with biopsies as indicated. Potential risks including bleeding and perforation were discussed, and the patient wishes to proceed. DETAILS OF PROCEDURE: The patient was taken to the operating room and placed in a left lateral decubitus position. IV sedation was administered, after which the upper GI endoscope was passed orally through the length of the esophagus and into the stomach with retroflexion view of the fundus, and thereafter, through the pyloric channel and into the proximal duodenum. Findings included normal hypopharynx, larynx, upper esophageal sphincter, and esophageal body. At the EG junction, a small hiatal hernia was present but without significant inflammation. As one entered into the stomach, there was a strikingly large gastric bezoar, consisting of old aggregated vegetable-type matter predominantly. This was associated with some mild redness on the surface where it was in contact with the bezoar. Otherwise, there were no erosions or ulcers, and the pyloric channel was widely patent, i.e. no obstructive component from a mechanical standpoint was present. The visualized portion of the duodenum to the junction of the third and fourth portions was unremarkable. At this point, biopsies were obtained from the antrum and sent for CLOtest for H. pylori. Minimal bleeding from the biopsy site was seen, and the procedure was then concluded. The patient will be instructed on anti-bezoar diet and will also begin Reglan 10 mg t.i.d., to take before breakfast, supper, and at bedtime. This should be helpful with the evident gastroparesis and also may be helpful with regard to the hiccups, as one of the medications is listed for treatment of hiccups. If this fails with regard to hiccups, additional medications may be tried. We did check with the pharmacy regarding medication interactions, and there were no significant interactions reported with Reglan and patient's current medications. The patient will be following up with Internal Medicine staff in [facility] this coming Saturday. Flo Bee MD /[id number]
== END 2017-11-05 12:45 | disposition home or self-care (01) ==
LOC: JP.SDS 07:30
PROVIDERS: ATTEND Surgery
DX: T18.2XXA Foreign body in stomach, initial encounter (principal); K44.9 Diaphragmatic hernia without obstruction or gangrene; K22.8 Other specified diseases of esophagus; I10 Essential (primary) hypertension; E11.9 Type 2 diabetes mellitus without complications; I48.91 Unspecified atrial fibrillation; I25.10 Atherosclerotic heart disease of native coronary artery without angina pectoris; Z88.8 Allergy status to other drugs, medicaments and biological substances
CPT/HCPCS: 43239; 87081; J2250; J2704; J3010; J7042; J3490